=== PATIENT | female | born 1990 | race Caucasian/White ===

== ENCOUNTER 2019-04-22 16:38 | Emergency (ER) | payer OTHER ==
[~2019-04-22] VITALS: Ht 162.6 cm; Wt 58.0 kg
--- NOTE | 2019-04-22 16:48 | NUR ---
PT BIB [facility], PER REPORT PT WAS SITTING AT DESK AT WORK BECOME DIZZY THEN HAD A SYNCOPAL EPISODE FELL OUT OF HER CHAIR AND HIT HER FOREHEAD. WITNESS THEN STATES THEY SAW WHAT APPEARED TO BE "SEIZURE LIKE ACTIVITY" AFTER THE FALL. PT WAS INITIALLY HYPOTENSIVE, 70/30S, EMS ADMINISTERED 500 CC BOLUS. PT NOW NORMOTENSIVE 109/72. FSBG 80 PER EMS REPORT. ERMD IN TO EVAL PT. PT TO BP, CARD MONITOR, CONT PULSE OX
--- NOTE | 2019-04-22 17:30 | NUR ---
PT TO IMAGING AT THIS TIME
[2019-04-22 17:31] LABS: ALANINE AMINOTRANSFERASE 16 U/L (12-78); ALBUMIN 3.8 g/dL (3.4-5.0); ANION GAP 11 mmol/L (5-15); CALCIUM 8.6 mg/dL (8.5-10.1); CHLORIDE 109 mmol/L (98-107); CREATININE 0.62 mg/dL (0.55-1.02)
[2019-04-22 17:34] LABS: BASOPHILS # (AUTO) 0.03 x10^3/uL (0-0.1); BASOPHILS % (AUTO) 0 % (0-1); EOSINOPHILS # (AUTO) 0.16 x10^3/uL (0-0.4); EOSINOPHILS % (AUTO) 2 % (1-7); LYMPHOCYTES # (AUTO) 2.69 x10^3/uL (1-3.4); LYMPHOCYTES % (AUTO) 25 % (22-44); MD NO; MEAN CORPUSCULAR HEMOGLOBIN 29.5 pg (27.0-34.8); MEAN CORPUSCULAR HGB CONC 33.3 g/dL (32.4-35.8); MEAN CORPUSCULAR VOLUME 88.6 fL (80-100); MEAN PLATELET VOLUME 7.8 fL (7.4-10.4); MONOCYTES # (AUTO) 0.41 x10^3/uL (0.2-0.8); MONOCYTES % (AUTO) 4 % (2-9); NEUTROPHILS # (AUTO) 7.29 x10^3/uL (1.8-6.8); NEUTROPHILS % (AUTO) 69 % (42-75); PLATELET COUNT 311 x10^3/uL (130-400); RED BLOOD COUNT 4.82 x10^6/uL (3.82-5.3)
[2019-04-22 17:35] LABS: ALKALINE PHOSPHATASE 67 U/L (45-117); BILIRUBIN,TOTAL 0.4 mg/dL (0.2-1.0); TOTAL PROTEIN 7.2 g/dL (6.4-8.2); TROPONIN I < 0.015 ng/mL (0.000-0.045)
--- NOTE | 2019-04-22 18:35 | NUR ---
PT PLACED FOR RECHECK, PT RESTING ON GURNEY, VSS, NO EPISODE OF JUNCTIONAL NOTED ON MONITOR. NAD NOTED AT THIS TIME
[2019-04-22] MEDS ORDERED: POTASSIUM CHLORIDE 20 MEQ TAB.ER.PRT ONE (19:16)
[2019-04-22] MEDS ORDERED: POTASSIUM CHLORIDE 20 MEQ TAB.ER.PRT PO ONE (19:30)
[2019-04-22] MEDS ORDERED: NEOSPORIN OINT. PKT 1 PACKET ONE (19:34)
--- NOTE | 2019-04-22 19:58 | NUR ---
ASSISTING PRIMARY RN. ATTEMPT TO TAKE BP WITH PT STANDING. PT UNABLE TO STAND FOR LENGTH OF BP READ D/T "LIGHTHEADEDNESS" AND FEELING IF SHE WAS GOING TO FALL. BP 112/61 AFTER LYING BACK ON GURNEY. HR INCREASE FROM 70 TO 103. THIS REPORTED BACK TO PRIMARY RN.
[2019-04-22 20:54] VITALS: BP 117/84
[2019-04-22] MEDS ORDERED: SODIUM CHLORIDE 0.9% 1,000ML IVBOLUS ONE (21:00)
== END 2019-04-22 21:12 | disposition home or self-care (01) ==
LOC: ED 21:00
DX: G40.309 Generalized idiopathic epilepsy and epileptic syndromes, not intractable, without status epilepticus (principal); R55 Syncope and collapse; R42 Dizziness and giddiness; R11.0 Nausea
CPT/HCPCS: 36415; 70450; 71045; 80053; 84484; 84703; 85025; 93005; 96360; 99284; J7030